=== PATIENT | male | born 1985 | race Caucasian/White ===

== ENCOUNTER 2017-02-14 21:05 | Emergency (ER) | payer MEDICAID ==
[~2017-02-14] VITALS: Ht 180.3 cm; Wt 49.0 kg
--- NOTE | 2017-02-14 21:30 | NUR ---
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 DENIES PAIN. PT DENIES ANY UOP SINCE SWELLING STARTED; NOTED WITH 100CC OF CLOUDY EMILIA URINE IN GOSS BAG. NAD NOTED. NO OTHER COMPLAINTS. IN ER BED 11.
--- NOTE | 2017-02-14 22:25 | NUR ---
IRIS, NARCISA AT FACILITY, [facility] ([address] [place] [address]), CELL: [phone] FACILITY NUMBER: [phone] PER IRIS IF PT IS DISCHARGED PLEASE SEND BACK TO THIS FACILITY!
--- NOTE | 2017-02-14 23:13 | NUR ---
CALLED [facility] FOR TRANSPORT BACK TO [facility], ETA 45 MIN- 1 HOUR
--- NOTE | 2017-02-14 23:15 | NUR ---
RECEIVED CALL FROM [employer] [facility] Silva 90 MIN
[2017-02-14 23:18] LABS: APPEARANCE,URINE CLOUDY (CLEAR); BILIRUBIN,URINE NEGATIVE (NEGATIVE); BLOOD, URINE 2+ Ery/uL (NEGATIVE); COLOR,URINE BROWN (YELLOW); KETONES,URINE TRACE (NEGATIVE); LEUKOCYTE ESTERASE ,URINE TRACE (NEGATIVE); NITRITE, URINE NEGATIVE (NEGATIVE); PROTEIN,URINE 2+ mg/dl (NEGATIVE); UGLUCOSE NEGATIVE (NEGATIVE)
[2017-02-14 23:28] LABS: PH,URINE 8.5 (5.0-8.0)
[2017-02-14 23:31] LABS: ADD URINE CULTURE NO; BACTERIA,URINE None seen /HPF (None Seen); RBC,URINE 0-5 /HPF (0-2); SQUAMOUS EPITHELIAL CELL,UR Rare /HPF (None Seen); TRIPLE PHOSPHATE CRYSTAL,UR Few /HPF (None Seen); WBC,URINE 0-3 /HPF (0-3)
[2017-02-14 23:32] LABS: URINE AMORPHOUS URATE Many /HPF (None Seen)
--- NOTE | 2017-02-15 00:02 | NUR ---
Patient discharged to [facility]ILITY [facility] in stable condition. Written and verbal after care instructions given. Patient verbalizes understanding of instruction.
[2017-02-15 00:16] VITALS: BP 108/80
== END 2017-02-15 00:18 ==
LOC: ER 21:06
DX: N45.1 Epididymitis (principal); N43.3 Hydrocele, unspecified; G82.20 Paraplegia, unspecified
CPT/HCPCS: 76870-TC; 81000-TC; A4606; Z7610

== ENCOUNTER 2017-02-15 19:01 | Emergency (ER) | payer MEDICAID ==
[~2017-02-15] VITALS: Ht 182.9 cm; Wt 49.9 kg
--- NOTE | 2017-02-15 19:10 | NUR ---
PT BIBA #889 FOR TESTICULAR SWELLING AND FEVER. PT WAS HERE YESTERDAY FOR TESTICULAR PAIN AND SWELLING. PT AOX3 RR EVEN AND UNLABORED. NO SOB NOTED. NAD NOTED. NO NVD AT THIS TIME. PT GOWNED AND PLACED ON MONITOR WAITING FOR MD TAVERA.
[2017-02-15] MEDS ORDERED: CEFTRIAXONE 1GM BAG (ER ONLY) 50 ML IV ONE (19:26)
[2017-02-15] MEDS ORDERED: IV SET PRIMARY 1 EA INFUS.SET MC ONE ×2 (19:26→22:52)
[2017-02-15] MEDS ORDERED: IV NS 0.9% 2,000 ML ONE ×2 (19:26→22:52)
[2017-02-15] MEDS ORDERED: ACETAMINOPHEN ES 500 MG TABLET ONE (19:26)
--- NOTE | 2017-02-15 19:31 | NUR ---
XRAY AT BEDSIDE.
[2017-02-15] MEDS: IV NS 0.9% 1,000 ML BAG IV ONE ×2 (19:35→23:06)
[2017-02-15] MEDS: CEFTRIAXONE 1GM BAG (ER ONLY) 50 ML IV ONE (19:36)
[2017-02-15] MEDS: ACETAMINOPHEN ES 500 MG TABLET PO ONE (19:36)
[2017-02-15 19:58] LABS: INR 1.33 (0.87-1.13)
[2017-02-15 19:59] LABS: ALANINE AMINOTRANSFERASE 17 U/L (12-78); ALBUMIN 2.5 g/dL (3.4-5.0); ALKALINE PHOSPHATASE 143 U/L (46-116); ASPARTATE AMINOTRANSFERASE 27 U/L (15-37); BILIRUBIN,DIRECT 0.4 mg/dL (0.0-0.2); BILIRUBIN,TOTAL 1.4 mg/dL (0.2-1.0); CALCIUM, SERUM 8.6 mg/dL (8.5-10.1); CARBON DIOXIDE 21 mmol/L (21-32); CHLORIDE 92 mmol/L (98-107); CREATININE 1.6 mg/dL (0.6-1.3); GFR 51 mL/min (>60); GLUCOSE 156 mg/dL (74-106); POTASSIUM 4.8 mmol/L (3.5-5.1); SODIUM SERUM 127 mmol/L (136-145); TOTAL PROTEIN, SERUM 6.7 g/dL (6.4-8.2)
[2017-02-15 20:02] LABS: TROPONIN I < 0.017 ng/mL (0.00-0.056); UREA NITROGEN, BLOOD 81 mg/dL (7-18)
--- NOTE | 2017-02-15 20:07 | NUR ---
PT TO CT.
[2017-02-15] MEDS ORDERED: IV NS 0.9% 250 ML IV ONE (20:10)
[2017-02-15] MEDS ORDERED: CT SWABBABLE VALVE TRANS SET 1 EA INFUS.SET MC ONE (20:11)
[2017-02-15] MEDS ORDERED: IOHEXOL-300 100 ML VIAL IV ONE (20:11)
[2017-02-15 20:15] LABS: LACTIC ACID 4.2 mmol/L (0.4-2.0)
--- NOTE | 2017-02-15 20:36 | NUR ---
PT RETURNED FROM CT.
[2017-02-15] MEDS: VANCOMYCIN 1 GM in IV D5W 250 ML IV ONE (20:37)
[2017-02-15 20:49] LABS: APPEARANCE,URINE TURBID (CLEAR); BILIRUBIN,URINE 1+ (NEGATIVE); BLOOD, URINE 3+ Ery/uL (NEGATIVE); COLOR,URINE RED (YELLOW); KETONES,URINE NEGATIVE (NEGATIVE); LEUKOCYTE ESTERASE ,URINE 1+ (NEGATIVE); NITRITE, URINE NEGATIVE (NEGATIVE); PROTEIN,URINE 2+ mg/dl (NEGATIVE); UGLUCOSE NEGATIVE (NEGATIVE); UROBILINOGEN,URINE 0.2 EU/dL (0.2)
[2017-02-15 20:55] LABS: ADD URINE CULTURE YES; BACTERIA,URINE 4+ /HPF (None Seen); RBC,URINE TOO NUMEROUS TO COUN /HPF (0-2); SQUAMOUS EPITHELIAL CELL,UR None Seen /HPF (None Seen); WBC,URINE TOO NUMEROUS TO COUN /HPF (0-3)
--- NOTE | 2017-02-15 21:14 | NUR ---
CALLED AZ[facility] TO READ CT
--- NOTE | 2017-02-15 21:38 | NUR ---
CALLED [facility], SPOKE WITH NURSING SUP. AGUILAR, TOLD HIM WE HAVE TO TRANSFER PT OVER THERE BECAUSE WE DO NOT HAVE UROLOGY HERE, HE GAVE ME THE NUMBER FOR DR.DANIEL CARO (UROLOGY), . HE TOLD ME TO CALL HIM BACK AFTER WE SPEAK TO THE UROLOGIST AND HOSPITALIST AT [facility] AND HE WILL GIVE ME AN ICU BED.
--- NOTE | 2017-02-15 21:40 | NUR ---
PAGED DR.DANIEL CARO (UROLOGIST) [phone]
[2017-02-15] MEDS ORDERED: METRONIDAZOLE 500MG/ NS 100ML 100 ML IV ONE (21:55)
[2017-02-15] MEDS ORDERED: IV SET PRIMARY PUMP SET 1 EA INFUS.SET MC ONE (21:55)
[2017-02-15] MEDS: FLAGYL/NS RTU 500 MG/100 ML PIGGYBACK IV ONE (22:01)
--- NOTE | 2017-02-15 22:08 | NUR ---
SAID HE WILL SEE THE PT AT [place], WILL PAGE HOSPITALIST AT [facility] AND ANALYTICAL CHEMISTRY TEACHER SURGEON, .
--- NOTE | 2017-02-15 22:11 | NUR ---
PAGED HOSPITALIST AT [place], OUTSIDE SALES CONSULTANT
--- NOTE | 2017-02-15 22:14 | NUR ---
CALLED , TRANSFERRED CALL TO
--- NOTE | 2017-02-15 22:20 | NUR ---
SAID HE WILL NOT SEE PT AT [facility]
--- NOTE | 2017-02-15 22:25 | NUR ---
PAGED DR.RICHARD GUTIÉRREZ, TRANSFERRED CALL TO DR. SANCHEZ
[2017-02-15 22:34] LABS: BASOPHILS % (AUTO) 0.1 % (0.0-2.0); EOSINOPHILS % (AUTO) 0.2 % (0.0-6.0); HEMATOCRIT 39 % (39-51); HEMOGLOBIN 13.2 g/dL (13.5-17.5); LYMPHOCYTES # (AUTO) 0.5 /CMM (0.8-4.8); LYMPHOCYTES % (AUTO) 5.7 % (20.0-44.0); MEAN CORPUSCULAR HEMOGLOBIN 29 PG (26.0-33.0); MEAN CORPUSCULAR HGB CONC 34 g/dl (31.0-36.0); MEAN CORPUSCULAR VOLUME 86 fL (80-96); MONOCYTES # (AUTO) 0.1 /CMM (0.1-1.30); MONOCYTES % (AUTO) 1.6 % (2.0-12.0); NEUTROPHILS # (AUTO) 8.6 /CMM (1.8-8.9); NEUTROPHILS % (AUTO) 92.4 % (43.0-81.0); RED BLOOD CELL COUNT(AUTO) 4.55 MIL/uL (4.5-6.0); WHITE BLOOD COUNT (AUTO) 9.3 K/uL (4.3-11.0)
--- NOTE | 2017-02-15 22:39 | NUR ---
CALLED [facility], SPOKE WITH BRIELLE, PRESENTED PT, AWAITING CALL BACK FROM [facility]
[2017-02-15 22:42] LABS: PLATELET COUNT (AUTO) 10 /CMM (150-450)
--- NOTE | 2017-02-15 22:49 | NUR ---
CALLED [facility] TRAN[facility], SPOKE WITH NESS, SHE SAID THEY DO NOT ADMIT FOR MEDICINE AT THE NIGHT AND I CAN TRY BACK IN THE MORNING.
--- NOTE | 2017-02-15 23:00 | NUR ---
PER LAURA, INSERTED NEW F/C 16FR D/T PREVIOUS F/C PLACED NOTED KINKED.
--- NOTE | 2017-02-15 23:08 | NUR ---
CALLED [facility] ER, SPOKE WITH SILVANO, SAID SHE DOES NOT HAVE UROLOGY ON PANEL
[2017-02-15 23:21] LABS: BAND % (MANUAL) 26 % (0.0-5.0); LYMPHOCYTES % (MANUAL) 15 % (16-48); MONOCYTES % (MANUAL) 13 % (0-11.0); NEUTROPHILS % (MANUAL) 46 (42-76); PLATELET ESTIMATE DECREASED
--- NOTE | 2017-02-15 23:23 | NUR ---
CALLED [facility] TRANSFER LINE, SPOKE WITH BISMARK, PRESENTED PT, FAXED FACESHEET TO [phone]
--- NOTE | 2017-02-15 23:25 | NUR ---
CALLED [facility], WAITING TO HEAR BACK FROM [facility], OTHER HOSPITALS ARE AT [facility]
--- NOTE | 2017-02-15 23:26 | NUR ---
PER REE FROM [facility], THEY CAN NOT ACCEPT THE PATIENT
--- NOTE | 2017-02-15 23:28 | NUR ---
CALLED , TRANSFERRED CALL TO DR. VÁZQUEZ
--- NOTE | 2017-02-15 23:31 | NUR ---
PAGED DR.DANIEL CARO, TRANSFERRED CALL TO
--- NOTE | 2017-02-15 23:53 | NUR ---
[facility] [phone]. CALL FOR REPORT
--- NOTE | 2017-02-15 23:59 | NUR ---
[facility]
[2017-02-16] VITALS: BP 150/91
--- NOTE | 2017-02-16 00:06 | NUR ---
CALLED , TRANSFERRED CALL TO DR. VÁZQUEZ
--- NOTE | 2017-02-16 00:10 | NUR ---
REPORT GIVEN TO EMS FOR [facility]. PT VSS. PT AOX3, IVS INTACT AND PATENT. NO S/S INFECTION OR INFILTRATION NOTED. F/C INTACT AND PATENT. PT TRANSFERED TO [facility]IA [facility] AIDA DUMONT.
== END 2017-02-16 00:17 ==
LOC: ER 19:03 → UNDOADMIN 20:21 → TELE1 20:21
DX: A41.9 Sepsis, unspecified organism (principal); N49.2 Inflammatory disorders of scrotum; G82.20 Paraplegia, unspecified
CPT/HCPCS: 36415; 71010-TC; 80048-TC; 80076-TC; 81000-TC; 83605-TC; 84484-TC; 85025-TC; 85730-TC; 86850-TC; 87040-TC; 87081-TC; 87086-TC; 87186-TC; A4606; J0696; J3370; J3490; J7030; J7050; J7060; Q9967; Z7610

== ENCOUNTER 2017-03-17 10:23 | Emergency (ER) | payer MEDICAID ==
[~2017-03-17] VITALS: Ht 180.3 cm; Wt 49.9 kg
--- NOTE | 2017-03-17 10:43 | NUR ---
PT BIB [facility] C/O "CATHETERS" BEING PULLED OUT. DENIES ANY OTHER COMPLAINTS. UPON ASSESSMENT, PT HAS JOANA LOWER ABD CATHETERS THAT PT REPORTS "GO INTO THE KIDNEYS". NOTED WITH INSERTION SITES ON THE FRONT OF THE ABDOMEN, OPEN TO AIR, NO DRAINAGE OR DISCHARGE. NAD NOTED. IN ER BED 09.
[2017-03-17 11:00] LABS: BASOPHILS # (AUTO) 0.1 /CMM (0.0-0.2); BASOPHILS % (AUTO) 0.6 % (0.0-2.0); EOSINOPHILS # (AUTO) 0.2 /CMM (0.0-0.7); EOSINOPHILS % (AUTO) 1.5 % (0.0-6.0); HEMATOCRIT 26 % (39-51); HEMOGLOBIN 8.7 g/dL (13.5-17.5); LYMPHOCYTES # (AUTO) 1.9 /CMM (0.8-4.8); LYMPHOCYTES % (AUTO) 16.9 % (20.0-44.0); MEAN CORPUSCULAR HEMOGLOBIN 28 PG (26.0-33.0); MEAN CORPUSCULAR HGB CONC 33 g/dl (31.0-36.0); MEAN CORPUSCULAR VOLUME 85 fL (80-96); MONOCYTES # (AUTO) 0.8 /CMM (0.1-1.30); MONOCYTES % (AUTO) 7.3 % (2.0-12.0); NEUTROPHILS # (AUTO) 8.4 /CMM (1.8-8.9); NEUTROPHILS % (AUTO) 73.7 % (43.0-81.0); RDW COEFFICIENT OF VARIATION 16.7 (11.5-15.0); RED BLOOD CELL COUNT(AUTO) 3.08 MIL/uL (4.5-6.0); WHITE BLOOD COUNT (AUTO) 11.4 K/uL (4.3-11.0)
--- NOTE | 2017-03-17 11:05 | NUR ---
PT DOESN'T KNOW WHAT THE NAME OF THE FACILITY IS THAT HE CAME FROM, WHAT THE NAME OF THE PROCEDURE HE HAD IS CALLED, OR THE NAME OF THE DOCTOR IS WHO PERFORMED IT. PT REPORTS IT OCCURRED AT [facility] AND IT WAS DONE BEDSIDE WHILE HE WAS AWAKE.
[2017-03-17 11:08] LABS: PLATELET COUNT (AUTO) 954 /CMM (150-450)
[2017-03-17 11:11] LABS: CALCIUM, SERUM 8.3 mg/dL (8.5-10.1); CREATININE 0.5 mg/dL (0.6-1.3); POTASSIUM 3.6 mmol/L (3.5-5.1)
[2017-03-17 11:19] LABS: INR 1.14 (0.87-1.13)
[2017-03-17 11:23] LABS: ALBUMIN 1.7 g/dL (3.4-5.0); BILIRUBIN,TOTAL 0.1 mg/dL (0.2-1.0); TOTAL PROTEIN, SERUM 6.2 g/dL (6.4-8.2)
[2017-03-17 11:51] LABS: LYMPHOCYTES % (MANUAL) 16 % (16-48); MONOCYTES % (MANUAL) 7 % (0-11.0); NEUTROPHILS % (MANUAL) 77 (42-76)
[2017-03-17 11:52] LABS: ANISOCYTOSIS 1+; PLATELET ESTIMATE INCREASED
--- NOTE | 2017-03-17 12:31 | NUR ---
RESTING QUIETLY, NAD NOTED. ALL NEEDS ATTENDED TO.
--- NOTE | 2017-03-17 13:08 | NUR ---
[facility] CALLED, FACESHEET FAXED TO [phone] REQUESTED
--- NOTE | 2017-03-17 14:22 | NUR ---
Patient is resting comfortably in bed, watching TV. VSS. All needs attended to.
--- NOTE | 2017-03-17 15:27 | NUR ---
[facility] FROM [facility]SF[facility] CALLED ([phone]); PT ACCEPTED BY DR ARIES MORENO FOR ER TO ER TRANSFER. NUMBER FOR REPORT: [phone]
--- NOTE | 2017-03-17 15:31 | NUR ---
REPORT GIVEN TO [facility] RECORDER FOR ADMISSION
--- NOTE | 2017-03-17 15:34 | NUR ---
CALLED [facility] FOR TRANSPORT; ETA 45-60 MINUTES
[2017-03-17 16:06] VITALS: BP 94/54
--- NOTE | 2017-03-17 16:52 | NUR ---
PT TRANSFERRED TO [facility] VIA [facility] IN STABLE CONDITION. VSS. CAROLYNN NOTED. ALL PAPERWORK WITH PT.
== END 2017-03-17 16:53 | disposition short-term general hospital (02) ==
LOC: ER 10:24
DX: T83.9XXA Unspecified complication of genitourinary prosthetic device, implant and graft, initial encounter (principal); D64.9 Anemia, unspecified; N49.3 Fournier gangrene; G82.20 Paraplegia, unspecified
CPT/HCPCS: 36415; 80053-TC; 85025-TC; 85730-TC; 87081-TC; A4606; Z7610

== ENCOUNTER 2017-03-25 14:27 | Emergency (ER) | payer MEDICAID ==
[~2017-03-25] VITALS: Ht 180.3 cm; Wt 51.3 kg
--- NOTE | 2017-03-25 14:40 | NUR ---
PT TO ED ROOM 05: [id number] FROM : ABDOMINAL WOUND/BLADDER CATHER/UROSTOMY SITE REDNESS.
--- NOTE | 2017-03-25 15:08 | NUR ---
CALLED DR.KARIM LUNA AT [phone], SPOKE WITH RUTH SOFIA, PAGED HIM TO CALL US BACK
[2017-03-25 15:16] LABS: BASOPHILS % (AUTO) 0.4 % (0.0-2.0); EOSINOPHILS # (AUTO) 0.2 /CMM (0.0-0.7); EOSINOPHILS % (AUTO) 2.4 % (0.0-6.0); HEMATOCRIT 27 % (39-51); HEMOGLOBIN 9.1 g/dL (13.5-17.5); LYMPHOCYTES # (AUTO) 2.1 /CMM (0.8-4.8); LYMPHOCYTES % (AUTO) 20.2 % (20.0-44.0); MEAN CORPUSCULAR HEMOGLOBIN 28 PG (26.0-33.0); MEAN CORPUSCULAR HGB CONC 33 g/dl (31.0-36.0); MEAN CORPUSCULAR VOLUME 84 fL (80-96); MONOCYTES # (AUTO) 1.4 /CMM (0.1-1.30); MONOCYTES % (AUTO) 13.5 % (2.0-12.0); NEUTROPHILS # (AUTO) 6.5 /CMM (1.8-8.9); NEUTROPHILS % (AUTO) 63.5 % (43.0-81.0); PLATELET COUNT (AUTO) 808 /CMM (150-450); RDW COEFFICIENT OF VARIATION 16.9 (11.5-15.0); RED BLOOD CELL COUNT(AUTO) 3.26 MIL/uL (4.5-6.0); WHITE BLOOD COUNT (AUTO) 10.2 K/uL (4.3-11.0)
[2017-03-25 15:29] LABS: CALCIUM, SERUM 8.3 mg/dL (8.5-10.1); CREATININE 0.6 mg/dL (0.6-1.3); POTASSIUM 3.7 mmol/L (3.5-5.1)
[2017-03-25] MEDS ORDERED: IV NS 0.9% 500 ML BAG IV ONE (15:30)
--- NOTE | 2017-03-25 15:33 | NUR ---
REPAGED DR.KARIM LUNA
--- NOTE | 2017-03-25 15:35 | NUR ---
R AC G 20 IV STARTED.
--- NOTE | 2017-03-25 15:39 | NUR ---
CALLED DR.KARIM LUNA AT [phone], SPOKE WITH DEBORAH, TRANSFERRED CALL TO
[2017-03-25] MEDS ORDERED: IV NS 0.9% 500 ML IV ONE (15:43)
[2017-03-25] MEDS ORDERED: IV SET PRIMARY 1 EA INFUS.SET MC ONE (15:44)
--- NOTE | 2017-03-25 16:13 | NUR ---
CALLED [facility] FOR TRANSPORT BACK TO [facility], ETA 1700
--- NOTE | 2017-03-25 16:55 | NUR ---
Patient is resting comfortably in bed with eyes closed. Easily aroused. VSS
[2017-03-25 17:19] VITALS: BP 122/65
--- NOTE | 2017-03-25 17:19 | NUR ---
IV removed. Catheter intact and site benign. Pressure and 4x4 applied to site. No bleeding noted.Patient discharged to home in stable condition. Written and verbal after care instructions given. Patient verbalizes understanding of instruction.
== END 2017-03-25 17:20 | disposition home or self-care (01) ==
LOC: ER 14:28
DX: T85.698A Other mechanical complication of other specified internal prosthetic devices, implants and grafts, initial encounter (principal); D64.9 Anemia, unspecified; E86.0 Dehydration; G82.20 Paraplegia, unspecified; Z98.890 Other specified postprocedural states
CPT/HCPCS: 36415; 71010-TC; 80048-TC; 85025-TC; A4606; J7040; Z7610